=== PATIENT | female | born 1970 | race Caucasian/White ===

== ENCOUNTER → 2024-04-15 14:42 | Outpatient (REF) | payer BC, SELFPAY | LOC: WDC 14:42 | PROVIDERS: ATTENDING PHYSICIAN Obstetrics & Gynecology; FAMILY PHYSICIAN Family Medicine | DX: Z12.31 Encounter for screening mammogram for malignant neoplasm of breast (principal) | CPT/HCPCS: 77063; 77067 ==

== ENCOUNTER 2024-08-22 01:23 | Emergency (ER) | payer BC, SELFPAY ==
[2024-08-22 01:26] VITALS: BP 113/62
--- NOTE | 2024-08-22 01:43 | ED.GENMED ---
History of Present Illness
General
Chief Complaint: Post Operative Problem(s)
Source: patient
Exam Limitations: none
Time Seen by Provider: 08/22/24 01:32
Nursing documentation reviewed up to this point in time: agreed with
History of Present Illness
History of Present Illness:
54-year-old female with history of hypothyroidism who is 2 days status post bunionectomy with Dr. Banegas presents to the emergency room with her for evaluation of postoperative foot pain. Patient reports that she had nerve block wore off
yesterday and she started to have significant pain in the foot. She says that she has been taking ibuprofen 600 mg, Tylenol 500 mg, gabapentin 100 mg, tramadol 100 mg to try and control her symptoms but none of these things are helping and so she
came to the ER. She denies any fevers or chills. She denies any other complaints. She says that previously when she had her hysterectomy she responded well to oxycodone.
Review of Systems
Review of Systems
All Other Systems: ROS reviewed and negative except as documented in HPI and ROS
Constitutional: Denies fever
Musculoskeletal: Reports other (Foot pain)
Phy Exam
Physical Exam
Physical Exam:
General: Well appearing and non-toxic
HEENT: protecting airway
Neck: appears supple
CV: No evidence of cyanosis
Resp: No accessory muscle use
Abd: Non-distended
Extremities: Patient has splint in place right lower extremity; toes are exposed and are warm, pink and well-perfused with brisk capillary refill and good color; she has a good popliteal pulse on the right
Neuro: Alert
Psych: Normal affect
Scores
Heart Failure Risk
Heart Failure Risk Score: Not Applicable
Heart Score for Chest Pain Patients
STEMI patient?: Not applicable
Withdrawal Assessment of Alcohol
Withdrawal Assessment Completed?: Not applicable
Course
Orders/Labs/Results
Orders:
Orders
08/22/24 01:41
Ketorolac [Toradol] 30 mg IM NOW STA
Oxycodone [Roxicodone] 5 mg PO NOW STA
08/22/24 03:46
Oxycodone [Roxicodone] 5 mg PO NOW STA
Vital Signs
Initial and Last Documented VS:
Initial Vital Signs
Temp Pulse Resp BP Pulse Ox
36.8 C 66 16 113/62 97
08/22/24 01:26 08/22/24 01:26 08/22/24 01:26 08/22/24 01:26 08/22/24 01:26
Last Documented Vital Signs
Temp Pulse Resp BP Pulse Ox
36.8 C 66 16 113/62 97
08/22/24 01:26 08/22/24 01:26 08/22/24 01:26 08/22/24 01:08/22/24 01:26
MDM/Problems Addressed
Differential Diagnosis Includes:
Postoperative pain
MDM/Problems Addressed:
54-year-old female presents to the ER with uncontrolled postoperative foot pain after a bunionectomy. Has tried ibuprofen, Tylenol, tramadol, gabapentin but none of these things are providing adequate pain control. She has no signs of vascular
compromise. She has no signs or symptoms of infection and is only 2 days out from the procedure. Her pain is localized to the medial aspect of the foot she has no calf pain to suggest that this is a DVT. Suspect that this is simply postoperative
pain, will treat symptomatically here and reassess.
Pain improved with ED treatment, will prescribe prescription for short-term pain control, advised patient that she should speak with her surgeon for close follow-up this week to discuss further pain control. I did send a message to her surgeon to
update. Spoke to her about return precautions to the ED. All questions answered.
*Pulse Oximetry
Patient hypoxic: no
*Critical Care Note
Total Time (30-74mins, 75-104mins- exclusive of procedures): Not Applicable
Data Reviewed
Source: patient and spouse
Patient Management
Discussion with other providers: [employer] (Discussed with orthopedic surgeon)
ED Attending Note
-
Portions of this chart may have been created with voice recognition software.� Occasional wrong word or��sound alike� substitutions may have occurred due to the inherent limitations of voice recognition software.
Discharge Plan
Departure
Patient Disposition: Home (Routine Discharge)
Date of Disposition: 08/22/24
Time of Disposition: 03:51
Patient with high blood pressure during this ER visit?: No
Discharge Problem:
Post-op pain
Instructions: Postoperative Pain (DC)
Prescriptions:
New
oxycodone 5 mg tablet
5 mg PO Q6H PRN (Reason: Pain) Qty: 20 0RF
No Action
cetirizine 10 MG tablet
10 mg PO PRN PRN (Reason: allergies)
levothyroxine 75 MCG tablet
75 mcg PO MOWEFR
levothyroxine 100 MCG tablet
100 mcg PO SUTUTHSA
acetaminophen [Tylenol Extra Strength] 500 MG tablet
1,000 mg PO PRN PRN (Reason: pain)
ibuprofen [Advil] 200 MG tablet
400 mg PO PRN PRN (Reason: pain)
mometasone [Nasonex] 17 GM spray,non-aerosol
1 spray intranasal PRN PRN (Reason: congestion)
Referrals:
Lynn Miranda DO [Family Provider] -
Benjamin Banegas DPM [Active] - Follow up in 2-3 days
Activity Restrictions/Additional Instructions:
Thank you for visiting the Emergency Department at [facility].
1. Please schedule a follow up appointment as directed. Call first thing tomorrow morning to make an appointment.
2. If indicated, please take your medications as instructed and indicated on discharge paperwork.
3. If any of your symptoms do not improve, or persist, or become more severe within 6-12 hours, please return to the emergency department for further care.
4. Please return to the emergency department if you develop a headache, neck pain/stiffness, fever greater than 100.4F, chest pain, shortness of breath, persistent nausea, vomiting, slurred speech, difficulty walking, numbness/tingling, weakness,
signs of infection or any other symptoms that are worrisome to you.
Please call [phone] if you have any questions.
Interventions
Interventions:
*Risk Screen - Suicide Last Done: 08/22/24 01:26
*General Assessment Last Done: 08/22/24 01:26
*Neglect/Abuse Screening Last Done: 08/22/24 01:26
ED- Fall Risk Assessment Last Done: 08/22/24 01:26
*ED COVID-19 Vaccine History Last Done: 08/22/24 01:26
ED-Skin Assessment Last Done: 08/22/24 01:37
Discharge Date and Time
Print Language: BANGLADESHI
[2024-08-22] MEDS: TORADOL 30 MG IM (01:52)
[2024-08-22] MEDS: ROXICODONE 5 MG PO ×2 (01:52→03:50)
[2024-08-22 02:18] VITALS: BP 109/78
== END 2024-08-22 04:12 | disposition home or self-care (01) ==
LOC: EMR 01:23
PROVIDERS: EMERGENCY PHYSICIAN Emergency Medicine; FAMILY PHYSICIAN Family Medicine
DX: G89.18 Other acute postprocedural pain (principal); M79.671 Pain in right foot; E03.9 Hypothyroidism, unspecified; Z88.5 Allergy status to narcotic agent
CPT/HCPCS: 99284; 96372

== ENCOUNTER → 2025-03-10 14:43 | Outpatient (REF) | payer BC, SELFPAY | LOC: WDC 14:43 | PROVIDERS: ATTENDING PHYSICIAN Obstetrics & Gynecology; FAMILY PHYSICIAN Family Medicine | DX: R92.30 Dense breasts, unspecified (principal) | CPT/HCPCS: 76641 ==